=== PATIENT | male | born 1990 | race Native Hawaiian/Other Pacific Islander ===

== ENCOUNTER 2022-11-06 20:42 | Emergency (ER) | payer OTHER ==
[2022-11-06 20:52] VITALS: BP 132/79
--- NOTE | 2022-11-06 20:59 | ED Physician Documentation ---
PD HPI LOWER EXT INJURY - Stated complaint Stated Complaint: RT LEG INJ - Chief complaint Chief Complaint: Ext Problem - History obtained from History obtained from: Patient - Additional information Additional information: The patient comes to the emergency department chief complaint of right ankle pain after a rolling injury this evening while playing soccer. He states he was running for the ball and stepped on another player's foot and his foot inverted, causing pain and a "snapping" sensation in the area of his right lateral malleolus. Patient states he has been able to walk on it but it hurts. He was can go home and just see how it did but his girlfriend wanted him to come here and get checked out. Patient states he has sprained the ankle several times previously while playing soccer, but not recently. No previous fractures or surgeries. The patient denies being injured in any other way. No numbness or tingling. No weakness of the foot. No other complaints at this time. PD PAST MEDICAL HISTORY - Past Medical History Past Medical History: No Cardiovascular: None Respiratory: None Neuro: None Endocrine/Autoimmune: None GI: None : None HEENT: None Psych: None Musculoskeletal: None Derm: None - Past Surgical History Past Surgical History: No - Present Medications Home Medications: Ambulatory Orders Medication Instructions Recorded Confirmed No Known Home Medications 11/06/22 11/06/22 - Allergies Allergies/Adverse Reactions: Allergies Allergy/AdvReac Type Severity Reaction Status Date / Time No Known Drug Allergies Allergy Verified 11/06/22 20:52 - Social History Does the pt smoke?: No Smoking Status: Never smoker Does the pt drink ETOH?: No Does the pt have substance abuse?: No - Immunizations Immunizations are current?: Yes - POLST Patient has POLST: No PD ED PE NORMAL - Vitals Vital signs reviewed: Yes - General General: Alert and oriented X 3, No acute distress, Well developed/nourished - HEENT HEENT: Atraumatic, PERRL, EOMI, Moist mucous membranes - Neck Neck: Supple, no meningeal sign - Cardiac Cardiac: Strong equal pulses - Respiratory Respiratory: No respiratory distress - Derm Derm: Normal color, Warm and dry, No rash - Extremities Extremities: No deformity, Other (Moderate edema over right lateral malleolus with mild tenderness to palpation. No palpable deformity. Mild limitation range of motion secondary to pain. No medial edema or tenderness. No tenderness at the head of the fibula. ) - Neuro Neuro: No motor deficit, No sensory deficit, Other (Otherwise grossly intact) - Psych Psych: Normal mood, Normal affect Results - Vitals Vitals: Vital Signs - 24 hr 11/06/22 11/06/22 20:50 21:27 Temperature 36.5 C Heart Rate 102 H Respiratory 17 17 Rate Blood Pressure 132/79 H O2 Saturation 99 Oxygen O2 Source Room air - Rads (name of study) Right ankle x-ray series Relevant Findings:: Final report received, See rad report (Negative) PD Medical Decision Making - ED course Complexity details: reviewed results, re-evaluated patient, considered bari hancock, d/w patient ED course: The patient was worked up with x-ray series of his right ankle. In the meantime, he was offered ibuprofen but declined. However, he did state he would like an ice pack and we have given this to him. The x-ray series of his ankle was negative. He was placed in an air splint and given a pair of crutches to use as needed. We have discussed weightbearing as tolerated and the need to avoid strenuous and high impact activities with his right ankle until he can walk and jog without pain. We have discussed the usual indications for follow-up and return. Departure - Departure Disposition: 01 Home, Self Care Clinical Impression: Ankle sprain Qualifiers: Encounter type: initial encounter Involved ligament of ankle: unspecified ligament Laterality: right Qualified Code(s): S93.401A - Sprain of unspecified ligament of right ankle, initial encounter Condition: Stable Instructions: ED Sprain Ankle Comments: Your x-rays tonight look good. There is no evidence of any broken bones and everything is in good placement terms of the relation of the bones to each other. It appears that you have sprained your ankle, and as we have discussed, this is the most common location for a sprain. While sprains do take several weeks at least to go through the initial healing process, the wearing of the splint and using of crutches is on an as-needed basis. You have been fitted with an air splint and a pair of crutches this evening and you may use these as long as you feel you need them. You should avoid any strenuous or high impact activity on the ankle until you can walk and jog without pain. You may go back to work at what ever level you feel comfortable doing so. You may take ibuprofen and/or Tylenol as needed for discomfort. Propping your foot up and using an ice pack may also be helpful with the pain and swelling. Forms: Activity restrictions Discharge Date/Time: 11/06/22 21:33
--- NOTE | 2022-11-06 21:46 | XRAY Report ---
PROCEDURE: Ankle 3 View RT INDICATIONS: injury/pain/swelling lat malleolus TECHNIQUE: 3 views of the ankle were acquired. COMPARISON: None. FINDINGS: Bones: No fractures or dislocations. Ankle mortise is normally aligned. No suspicious bony lesions . Soft tissues: No tibiotalar joint effusion. There is periarticular soft tissue swelling anterolatera lly. Achilles tendon appears normal. IMPRESSION: 1. No acute bony abnormality. Reviewed by: Tomy Pineda MD on 11/06/2022 9:45 PM PDT Approved by: Tomy Pineda MD on 11/06/2022 9:45 PM PDT Station ID: [id number]
== END 2022-11-06 21:33 | disposition home or self-care (01) ==
LOC: ED 20:42
DX: S93.401A Sprain of unspecified ligament of right ankle, initial encounter (principal); X50.1XXA Overexertion from prolonged static or awkward postures, initial encounter; Y93.66 Activity, soccer
CPT/HCPCS: 99283

== ENCOUNTER 2023-09-27 13:48 | Outpatient (CLI) | payer OTHER ==
--- NOTE | 2023-09-29 12:36 | MRI Report ---
PROCEDURE: Ankle RT WO INDICATIONS: R ANKLE PAIN TECHNIQUE: Noncontrast Magnetic Resonance Imaging (MRI) of the ankle/hindfoot was performed utilizing the follow ing sequences: sagittal T1 spin echo, sagittal T2 fast spin echo with fat saturation, axial PD fast s pin echo, axial T2 fast spin echo with fat saturation, coronal T1 spin echo, and coronal T2 fast spin echo with fat saturation. COMPARISON: Right ankle radiographs 11/06/2022 FINDINGS: Image quality: Excellent. Bones and joints: No acute trabecular bone injury or fracture. No hindfoot coalition. The ankle mortise is maintained. No osteochondral defect is seen at the talar dome. Medial structures: The deltoid ligament and the spring ligament complex are intact. There is mild distal posterior tibia lis tenosynovitis. The flexor digitorum longus and flexor hallucis longus tendons are intact. The pos terior tibial neurovascular bundle appears normal within the tarsal tunnel, without extrinsic mass ef fect. Lateral structures: The anterior and posterior distal tibiofibular ligaments are intact. Remote prior moderate grade spra ins/partial tears of the anterior talofibular ligament and calcaneofibular ligament.. Remote prior lo w-grade sprain of the posterior talofibular ligament. The peroneus brevis and longus tendons demonstr ate mild tenosynovitis. The sinus tarsi demonstrates normal fatty signal. Anterior structures: The tibialis anterior, extensor hallucis longus, and extensor digitorum longus tendons appear intact. Posterior and plantar structures: The Achilles tendon is intact. There is thickening of the proximal plantar fascia without surrounding edema, consistent with chronic fasciopathy. No disproportionate atrophy of the abductor digiti minim i muscle. IMPRESSION: 1.Remote prior grade 2 sprains of the anterior talofibular ligament and calcaneofibular ligament, and grade 1 sprain of the posterior talofibular ligament. 2.Mild peroneus brevis and longus tenosynovitis. 3.Mild distal posterior tibialis tenosynovitis. Reviewed by: Jose Miller MD on 09/29/2023 12:34 PM PDT Approved by: Jose Miller MD on 09/29/2023 12:34 PM PDT Station ID: [id number]
== END 2023-09-27 13:49 | disposition home or self-care (01) ==
LOC: DI 13:48
DX: M65.9 Synovitis and tenosynovitis, unspecified (principal); S93.491D Sprain of other ligament of right ankle, subsequent encounter; S93.411D Sprain of calcaneofibular ligament of right ankle, subsequent encounter